=== PATIENT | female | born 1995 | race American Indian/Alaskan Native ===

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

== ENCOUNTER 2017-04-25 20:42 | Outpatient (CLI) | payer MEDICAID ==
[2017-04-25 21:12] VITALS: BP 129/69
== END 2017-04-25 21:50 | disposition home or self-care (01) ==
LOC: TRG 20:42
PROVIDERS: ATTEND Obstetrics & Gynecology
DX: O36.8130 Decreased fetal movements, third trimester, not applicable or unspecified (principal); Z3A.32 32 weeks gestation of pregnancy
CPT/HCPCS: 59025

== ENCOUNTER 2017-05-05 00:23 | Emergency (ER) | payer MEDICAID ==
[2017-05-05 00:57] VITALS: BP 113/87
[2017-05-05] MEDS ORDERED: ASPIRIN PO ONE (00:57)
[2017-05-05 01:37] LABS: Basophils % (Auto) 0.3 % (0.0-1.8); Eosinophils # (Auto) 0.1 K/mm3 (0.0-0.4); Eosinophils % (Auto) 0.8 % (0.0-4.3); Hematocrit 31.6 % (30.3-42.9); Hemoglobin 10.2 gm/dl (10.1-14.3); Lymphocytes # (Auto) 2.3 K/mm3 (1.2-5.4); Lymphocytes % (Auto) 15.1 % (13.4-35.0); Mean Corpuscular HGB Conc 32 % (30-34); Mean Corpuscular Hemoglobin 27 pg (28-32); Mean Corpuscular Volume 85 fl (79-97); Monocytes # (Auto) 0.9 K/mm3 (0.0-0.8); Monocytes % (Auto) 5.9 % (0.0-7.3); Platelet Count 111 K/mm3 (140-440); Red Blood Count 3.73 M/mm3 (3.65-5.03); Red Cell Distribution Width 13.6 % (13.2-15.2)
[2017-05-05 01:47] LABS: BUN/Creatinine Ratio 14; Blood Urea Nitrogen 7 mg/dL (7-17); Calcium 9.1 mg/dL (8.4-10.2); Hemolysis Index 9
== END 2017-05-05 12:15 | disposition left against medical advice (07) ==
LOC: ED 00:23
DX: R07.89 Other chest pain (principal); Z53.21 Procedure and treatment not carried out due to patient leaving prior to being seen by health care provider
CPT/HCPCS: 36415; 80048; 84484; 84702; 85025; 93005; 93010

== ENCOUNTER 2017-05-18 21:38 | Outpatient (CLI) | payer MEDICAID ==
[2017-05-18] MEDS ORDERED: LACTATED RINGERS 500 ML IV ONE (22:09)
[2017-05-18 22:20] LABS: Bilirubin,Urine NEG (Negative); Blood,Urine NEG (Negative); Color,Urine Yellow (Yellow); Mucus,Urine FEW /HPF; Nitrite,Urine NEG (Negative); Protein,Urine <15 mg/dL mg/dL (Negative)
== END 2017-05-18 22:54 | disposition home or self-care (01) ==
LOC: TRG 21:38
PROVIDERS: ATTEND Obstetrics & Gynecology
DX: O46.93 Antepartum hemorrhage, unspecified, third trimester (principal); Z3A.36 36 weeks gestation of pregnancy
CPT/HCPCS: 59025; 81001; J7120

== ENCOUNTER 2017-08-21 00:14 | Emergency (ER) | payer SELFPAY ==
[2017-08-21] MEDS ORDERED: TYLENOL ONE (00:18)
[2017-08-21 00:22] VITALS: BP 146/91
[2017-08-21 00:58] LABS: HCG Qualitative,Urine Negative (Negative)
== END 2017-08-21 00:35 | disposition left against medical advice (07) ==
LOC: ED 00:14
DX: R50.9 Fever, unspecified (principal); M79.1 Myalgia; Z53.21 Procedure and treatment not carried out due to patient leaving prior to being seen by health care provider
CPT/HCPCS: 81025

== ENCOUNTER 2017-08-21 14:42 | Emergency (ER) | payer SELFPAY ==
[2017-08-21] MEDS ORDERED: TORADOL IV ONE (19:27)
[2017-08-21] MEDS ORDERED: NACL 0.9% 1000 ML 1,000 ML IV ONE ×2 (19:27→21:58)
[2017-08-21] MEDS ORDERED: NORCO 5/325 PO ONE (19:27)
[2017-08-21] MEDS ORDERED: ZOFRAN IV ONE (19:27)
--- NOTE | 2017-08-21 19:31 | Emergency Department Report ---
Blank Doc - Documentation Documentation: 22-year-old female presents to the hospital planning of suprapubic abdominal pain, low back pain, nausea, vomiting, and generalized body ache. Fever 103 at home. It was elevated some liquids at this time the by mouth tolerance decreased. Denies dysuria but dark discolored urine. No vaginal discharge UA, urine , CBC, CMP Normal saline, Toradol, [place], Zofran Mid-level to further evaluate
[2017-08-21 19:51] LABS: Basophils # (Auto) 0.1 K/mm3 (0.0-0.1); Basophils % (Auto) 0.4 % (0.0-1.8); Hemoglobin 10.8 gm/dl (10.1-14.3); Lymphocytes % (Auto) 6.1 % (13.4-35.0); Mean Corpuscular HGB Conc 33 % (30-34); Mean Corpuscular Volume 77 fl (79-97); Monocytes # (Auto) 0.7 K/mm3 (0.0-0.8); Monocytes % (Auto) 4.2 % (0.0-7.3); Platelet Count 125 K/mm3 (140-440); Red Blood Count 4.31 M/mm3 (3.65-5.03)
[2017-08-21 19:52] LABS: Mean Corpuscular Hemoglobin 25 pg (28-32)
[2017-08-21 20:02] LABS: Alanine Aminotransferase 10 units/L (7-56); BUN/Creatinine Ratio 10; Blood Urea Nitrogen 6 mg/dL (7-17); Calcium 8.8 mg/dL (8.4-10.2); Hemolysis Index 39
[2017-08-21 20:03] LABS: HCG Qualitative,Urine Negative (Negative)
[2017-08-21 20:08] LABS: Amorphous Crystals,Urine Few; Bacteria,Urine 1+ /HPF (Negative); Bilirubin,Urine NEG (Negative); Blood,Urine MOD (Negative); Color,Urine Yellow (Yellow); Mucus,Urine FEW /HPF; Urobilinogen,Urine < 2.0 mg/dL (<2.0)
[2017-08-21 20:09] LABS: WBC,Urine > 182.0 /HPF (0.0-6.0)
--- NOTE | 2017-08-21 20:35 | Emergency Department Report ---
ED Female HPI - General Chief complaint: Urogenital-Female Stated complaint: FLU LIKE SYMPTOMS Time Seen by Provider: 08/21/17 19:22 Source: patient Mode of arrival: Ambulatory Limitations: No Limitations - History of Present Illness Initial comments: 22-year-old female presents to the hospital planning of suprapubic abdominal pain, low back pain, nausea, vomiting, and generalized body ache. Fever 103 at home. It was elevated some liquids at this time the by mouth tolerance decreased. Denies dysuria but dark discolored urine. No vaginal discharge. Patient report lower back pain and chills . Denies any vaginal discharge or bleeding. Pain is 4 out of 10 comes and goes. Nothing makes it better nothing makes it worse.. No medication taken MD Complaint: pelvic pain, other (lower back pain, nausea and vomiting, chills and fever) Onset/Timin -: days(s) Location: suprapubic, other (lower back pain) Radiation: non-radiating Severity: mild Severity scale (0 -10): 4 Quality: aching Consistency: intermittent Improves with: none Worsens with: none Are you Now?: No Associated Symptoms: abdominal pain, nausea/vomiting, fever/chills. denies: vaginal discharge, vaginal bleeding, headaches, loss of appetite, dysuria, hematuria, rash, seizure, shortness of breath, syncope, weakness - Related Data Sexually active: No Home Medications Medication Instructions Recorded Confirmed Last Taken Ferrous Sulfate 325 mg PO DAILY 04/25/17 05/23/17 05/23/17 08:00 Vitamin 1 tab PO DAILY 04/25/17 05/23/17 05/23/17 08:00 Previous Rx's Medication Instructions Recorded Last Taken Type Docusate Sodium [Colace] 100 mg PO BID PRN #30 capsule 05/26/17 Unknown Rx Ferrous Sulfate 325 mg PO BID 60 Days tablet. 05/26/17 Unknown Rx Ibuprofen [Motrin] 600 mg PO Q8H PRN #30 tablet 05/26/17 Unknown Rx oxyCODONE /ACETAMINOPHEN [Percocet 1 tab PO Q6HR PRN #30 tablet 05/26/17 Unknown Rx 5/325] Ibuprofen [Motrin] 600 mg PO Q8H PRN #15 tablet 08/21/17 Unknown Rx Sulfamethoxazole/Trimethoprim 1 each PO BID 10 Days #20 tablet 08/21/17 Unknown Rx [Bactrim DS TAB] Allergies Allergy/AdvReac Type Severity Reaction Status Date / Time peanut Allergy THROAT Verified 03/01/16 16:04 ITCH; DIFFICULTY SWALLOWING ED Review of Systems ROS: Stated complaint: FLU LIKE SYMPTOMS Other details as noted in HPI Comment: All other systems reviewed and negative Constitutional: chills, fever ENT: denies: ear pain, throat pain Respiratory: no symptoms reported Cardiovascular: denies: chest pain, palpitations, dyspnea on exertion, edema, syncope, paroxysmal nocturnal dyspnea Gastrointestinal: abdominal pain, nausea, vomiting. denies: diarrhea, constipation, hematemesis, melena, hematochezia Genitourinary: denies: urgency, dysuria, frequency, hematuria, discharge, abnormal menses, dyspareunia Musculoskeletal: back pain. denies: joint swelling, arthralgia, myalgia Skin: denies: rash Neurological: denies: headache, numbness, paresthesias, confusion, abnormal gait , vertigo ED Past Medical Hx - Past Medical History Previous Medical History?: No Hx Hypertension: No Hx Congestive Heart Failure: No Hx Diabetes: No Hx Deep Vein Thrombosis: No Hx Renal Disease: No Hx Sickle Cell Disease: No Hx Seizures: No Hx Asthma: No Hx COPD: No Hx HIV: No - Surgical History Past Surgical History?: Yes Additional Surgical History: - Family History Family history: hypertension - Social History Smoking Status: Never Smoker Substance Use Type: None - Medications Home Medications: Home Medications Medication Instructions Recorded Confirmed Last Taken Type Ferrous Sulfate 325 mg PO DAILY 04/25/17 05/23/17 05/23/17 08:00 History Vitamin 1 tab PO DAILY 04/25/17 05/23/17 05/23/17 08:00 History Docusate Sodium [Colace] 100 mg PO BID PRN #30 capsule 05/26/17 Unknown Rx Ferrous Sulfate 325 mg PO BID 60 Days tablet 05/26/17 Unknown Rx Ibuprofen [Motrin] 600 mg PO Q8H PRN #30 tablet 05/26/17 Unknown Rx oxyCODONE /ACETAMINOPHEN [Percocet 1 tab PO Q6HR PRN #30 tablet 05/26/17 Unknown Rx 5/325] Ibuprofen [Motrin] 600 mg PO Q8H PRN #15 tablet 08/21/17 Unknown Rx Sulfamethoxazole/Trimethoprim 1 each PO BID 10 Days #20 tablet 08/21/17 Unknown Rx [Bactrim DS TAB] ED Physical Exam - General Limitations: No Limitations General appearance: alert, in no apparent distress - Head Head exam: Present: atraumatic, normocephalic, normal inspection - Eye Eye exam: Present: normal appearance, PERRL, EOMI Pupils: Present: normal accommodation - ENT ENT exam: Present: normal exam, normal orophraynx, mucous membranes moist - Neck Neck exam: Present: normal inspection, full ROM, other (no C-spine tenderness). Absent: tenderness, lymphadenopathy - Respiratory Respiratory exam: Present: normal lung sounds bilaterally. Absent: respiratory distress, chest wall tenderness - Cardiovascular Cardiovascular Exam: Present: normal rhythm, tachycardia, normal heart sounds - GI/Abdominal GI/Abdominal exam: Present: soft, normal bowel sounds. Absent: distended, tenderness, guarding, rebound, rigid, organomegaly, mass, bruit, pulsatile mass , hernia - Extremities Exam Extremities exam: Present: normal inspection, full ROM, normal capillary refill , other (no no clubbing, cyanosis or edema. +2 pulses all extremities and no neurovascular compromise). Absent: tenderness, pedal edema, joint swelling, calf tenderness - Back Exam Back exam: Present: normal inspection, full ROM, CVA tenderness (L), other ( ambulates without any difficulties). Absent: tenderness, CVA tenderness (R), muscle spasm, paraspinal tenderness, vertebral tenderness, rash noted - Expanded Back Exam Expanded Back exam: Absent: saddle anesthesia Back exam: Negative Straight Leg Raising: Left, Right - Neurological Exam Neurological exam: Present: alert, oriented X3, normal gait, reflexes normal. Absent: motor sensory deficit - Expanded Neurological Exam Expanded Neurological exam: Absent: innattentive, memory loss-remote event, memory loss- recent event, ataxia, receptive aphasia, expressive aphasia, total aphasia, tremor, protecting the airway Patient oriented to: Present: person, place, time Speech: Present: fluid speech Cranial nerves: EOM's Intact: Normal, Gag Reflex: Normal, Tongue Deviation: Normal, Nystagmus: Normal, Facial Sensation: Normal Cerebellar function: Romberg: Normal Upper motor neuron: Pronator Drift: Normal, Sensory Extinction: Normal Sensory exam: Upper Extremity Light Touch: Normal, Upper Extremity Temperature: Normal, UE 2 Point Discrimination: Normal, Lower Extremity Light Touch: Normal, Lower Extremity Temperature: Normal, LE 2 Point Discrimination: Normal Motor strength exam: RUE: 5, LUE: 5, RLE: 5, LLE: 5 DTR: bicep (R): 2+, bicep (L): 2+, tricep (R): 2+, tricep (L): 2+, knee (R): 2+ , knee (L): 2+, ankle (R): 2+, ankle (L): 2+ Best Eye Response ([place]): (4) open spontaneously Best Motor Response ([place]): (6) obeys commands Best Verbal Response ([place]): (5) oriented Giovanna Total: 15 - Psychiatric Psychiatric exam: Present: normal affect, normal mood - Skin Skin exam: Present: warm, dry, intact, normal color. Absent: rash ED Course Vital Signs 08/21/17 08/21/17 08/21/17 14:48 20:00 21:01 Temperature 99.1 F Pulse Rate 109 H Respiratory 20 18 18 Rate Blood Pressure 122/75 Blood Pressure [Right] O2 Sat by Pulse 100 Oximetry 08/21/17 21:57 Temperature 102.1 F H Pulse Rate 117 H Respiratory 20 Rate Blood Pressure Blood Pressure 112/60 [Right] O2 Sat by Pulse 100 Oximetry Vital Signs 08/21/17 08/21/17 08/21/17 14:48 20:00 21:01 Temperature 99.1 F Pulse Rate 109 H Respiratory 20 18 18 Rate Blood Pressure 122/75 Blood Pressure [Right] O2 Sat by Pulse 100 Oximetry 08/21/17 08/21/17 21:57 23:54 Temperature 102.1 F H 99.9 F H Pulse Rate 117 H 96 H Respiratory 20 Rate Blood Pressure Blood Pressure 112/60 [Right] O2 Sat by Pulse 100 Oximetry - Reevaluation(s) Reevaluation #1: 08/21/17 21:54 Patient received 1 L of normal saline IV and tolerated by mouth challenge well without any nausea or vomiting. She received Zofran 4 mg IV which relieved her nausea. Patient also received morphine 4 mg IV which relieved her back pain. She received Toradol 30 mg IV for pain, Rocephin 1 g IV for pyelonephritis coverage, Motrin 600 mg for fever and 5/325 one tablet by mouth for pain while in the emergency room. Patient stated was that she felt better. Reevaluation #2: 08/21/17 21:57 Patient temperature is 102. She was given Motrin and we'll reevaluate. She is receiving second liter of normal saline. Reevaluation #3: 08/21/17 23:14 Patient temperature is 101.9 after her second liter of IV fluid and Motrin. She just received some Tylenol 650 mg and will reevaluate ED Medical Decision Making - Lab Data Result diagrams: 08/21/17 19:30 08/21/17 19:30 Lab Results 08/21/17 08/21/17 08/21/17 Range/Units 19:30 19:30 Unknown WBC 16.1 H (4.5-11.0) K/mm3 RBC 4.31 (3.65-5.03) M/mm3 Hgb 10.8 (10.1-14.3) gm/dl Hct 33.0 (30.3-42.9) % MCV 77 L (79-97) fl MCH 25 L (28-32) pg MCHC 33 (30-34) % RDW 14.0 (13.2-15.2) % Plt Count 125 L (140-440) K/mm3 Lymph % (Auto) 6.1 L (13.4-35.0) % Forrest % (Auto) 4.2 (0.0-7.3) % Eos % (Auto) 0.0 (0.0-4.3) % Baso % (Auto) 0.4 (0.0-1.8) % Lymph # 1.0 L (1.2-5.4) K/mm3 Forrest # 0.7 (0.0-0.8) K/mm3 Eos # 0.0 (0.0-0.4) K/mm3 Baso # 0.1 (0.0-0.1) K/mm3 Seg Neutrophils % 89.3 H (40.0-70.0) % Seg Neutrophils # 14.3 H (1.8-7.7) K/mm3 Sodium 135 L (137-145) mmol/L Potassium 4.3 (3.6-5.0) mmol/L Chloride 98.4 (98-107) mmol/L Carbon Dioxide 22 (22-30) mmol/L Anion Gap 19 mmol/L BUN 6 L (7-17) mg/dL Creatinine 0.6 L (0.7-1.2) mg/dL Estimated GFR > 60 ml/min BUN/Creatinine Ratio 10 % Glucose 103 H (65-100) mg/dL Calcium 8.8 (8.4-10.2) mg/dL Total Bilirubin 0.90 (0.1-1.2) mg/dL AST 19 (5-40) units/L ALT 10 (7-56) units/L Alkaline Phosphatase 45 (35-129) units/L Total Protein 7.2 (6.3-8.2) g/dL Albumin 4.0 (3.9-5) g/dL Albumin/Globulin Ratio 1.3 % Urine Color Yellow (Yellow) Urine Turbidity Hazy (Clear) Urine pH 5.0 (5.0-7.0) Ur Specific [place] 1.012 (1.003-1.030) Urine Protein 30 mg/dl (Negative) mg/dL Urine Glucose (UA) Neg (Negative) mg/dL Urine Ketones Neg (Negative) mg/dL Urine Blood Mod (Negative) Urine Nitrite Neg (Negative) Ur Reducing Substances Not Reportable Urine Bilirubin Neg (Negative) Urine Ictotest Not Reportable Urine Urobilinogen < 2.0 (<2.0) mg/dL Ur Leukocyte Esterase Lg (Negative) Urine WBC (Auto) > 182.0 H (0.0-6.0) /HPF Urine RBC (Auto) 13.0 (0.0-6.0) /HPF U Epithel Cells (Auto) 5.0 (0-13.0) /HPF Urine Bacteria (Auto) 1+ (Negative) /HPF Ur Transition Epith Cell 4 /HPF Amorphous Crystals Few Urine Mucus Few /HPF Urine HCG, Qual Negative (Negative) Urine culture pending - Medical Decision Making ED course: Patient here complaining of back pain and pelvic pain and was found to have pyelonephritis. She has fever, positive CVA tenderness, nausea and vomiting.Tolerated by mouth challenge well without any nausea or vomiting. She received Zofran 4 mg IV which relieved her nausea. Patient also received morphine 4 mg IV which relieved her back pain. She received Toradol 30 mg IV for pain, Rocephin 1 g IV for pyelonephritis coverage, Motrin 600 mg for fever and 5/325 one tablet by mouth for pain while in the emergency room. Patient stated was that she felt better. Patient tolerating oral liquids and her temp was 102 and 109.1 and she was given Tylenol 650 mg along with another liter of normal saline. To include 2 L total. Her temperature is now below 100 and heart rate is stable. Patient is feeling better and discharged home with prescription for Bactrim DS and Zofran. I discussed with her that she needs to follow up with her primary care physician in 4 days and if her condition worsens to return to the hospital. Critical care attestation.: If time is entered above; I have spent that time in minutes in the direct care of this critically ill patient, excluding procedure time. ED Disposition Clinical Impression: Pyelonephritis, Fever in adult, Acute flank pain Nausea & vomiting Qualifiers: Vomiting type: unspecified Vomiting Intractability: non-intractable Qualified Code(s): R11.2 - Nausea with vomiting, unspecified Leukocytosis Qualifiers: Leukocytosis type: unspecified Qualified Code(s): D72.829 - Elevated white blood cell count, unspecified Disposition: DC-01 TO HOME OR SELFCARE Is pt being admited?: No Does the pt Need Aspirin: No Condition: Stable Instructions: Fever in Adults (ED), Acute Pyelonephritis (ED), Acute Nausea and Vomiting (ED), Leukocytosis (ED), Flank Pain (ED) Additional Instructions: You have an infection in her kidney and he needs to increase her fluid intake to 2-3 L of water daily. Please take Motrin every 6 hours for fever and pain 48 hours and then as needed Take Bactrim DS antibiotic for kidney infection If you symptoms worsen and she did not get any better, please return to the emergency room Follow-up via primary care physician in 4 days and if you do not have a primary care physician follow-up at [facility] Take Zofran for nausea Prescriptions: Ibuprofen [Motrin] 600 mg PO Q8H PRN #15 tablet PRN Reason: fever and/or pain Sulfamethoxazole/Trimethoprim [Bactrim DS TAB] 1 each PO BID 10 Days #20 tablet Referrals: PRIMARY CARE, [Primary Care Provider] - 08/25/17 [facility] [Outside] - 08/25/17 Forms: Accompanied Note, Work/School Release Form(ED)
[2017-08-21] MEDS ORDERED: ROCEPHIN/NS 1 GM/50 ML 1 GM/50 ML BAG IV ONE (20:53)
[2017-08-21] MEDS ORDERED: MOTRIN PO ONE (20:53)
[2017-08-21] MEDS ORDERED: ZOFRAN ORAL LIQ PO ONE (20:53)
[2017-08-21] MEDS ORDERED: ROCEPHIN IM ONE (21:12)
[2017-08-21] MEDS ORDERED: NACL 0.9% 100 ML ONE (21:15)
[2017-08-21] MEDS ORDERED: cefTRIAXone 1 GM in NACL 0.9% 20 ML IV ONE (21:15)
[2017-08-21 21:58] VITALS: BP 112/60
[2017-08-21] MEDS ORDERED: TYLENOL PO ONE (23:13)
== END 2017-08-22 00:24 | disposition home or self-care (01) ==
LOC: ED 14:42
DX: D72.829 Elevated white blood cell count, unspecified (principal); N12 Tubulo-interstitial nephritis, not specified as acute or chronic; I10 Essential (primary) hypertension; R11.2 Nausea with vomiting, unspecified; Z91.010 Allergy to peanuts
CPT/HCPCS: 36415; 80053; 81001; 81025; 85025; 87076; 87086; 87186; 96361; 96365; 96375; 99283; J0696; J1885; J2405; J7030; Q0162

== ENCOUNTER 2018-05-31 10:53 | Emergency (ER) | payer MEDICAID ==
--- NOTE | 2018-05-31 11:31 | Emergency Department Report ---
ED Chest Pain HPI - General Chief Complaint: Dyspnea/Respdistress Stated Complaint: (L) SIDE CHEST/BACK PAIN Time Seen by Provider: 05/31/18 11:18 Source: patient Mode of arrival: Ambulatory Limitations: No Limitations - History of Present Illness Initial Comments: Ms Green is a very pleasant 23-year-old female was admitted to our hospital in March for community-acquired pneumonia, sepsis, pleurisy, left-sided parapneumonic effusion. She informed me that shehad low oxygen saturation during the first 4 days of her hospitalization. She feels that the pneumonia has come back. Over the last several days she's had cough with shortness of breath and pain with inspiration and cough at the left lower rib cage. Denies fever. Denies malaise. She did have preceding cold URI symptoms. Her young 1-year-old son also has upper respiratory infection. Mild pleuritic sharp chest pain. No radiation. She does use hormone contraception in patch form. Denies leg pain. After hospitalization, she finished course of 2 antibiotics including levofloxacin and cefdinir. On May 14, she had outpatient follow-up with regional service manager Dr. Ordoñez. Dr. Ordoñez informed her that she does have scar tissue on her lung. Consequently her subsequent chest x-ray radiographs would have an abnormal appearance. - Related Data Previous Rx's Medication Instructions Recorded Last Taken Type Cefdinir 300 mg PO BID 7 Days #14 capsule 05/31/18 Unknown Rx Allergies Allergy/AdvReac Type Severity Reaction Status Date / Time peanut Allergy THROAT Verified 03/01/16 16:04 ITCH; DIFFICULTY SWALLOWING Heart Score - HEART Score History: Slightly suspicious EKG: Normal Age: < 45 Risk factors: No known risk factors Troponin: < normal limit HEART Score: 0 ED Review of Systems ROS: Stated complaint: (L) SIDE CHEST/BACK PAIN Other details as noted in HPI Comment: All other systems reviewed and negative Constitutional: denies: fever, malaise Respiratory: cough, shortness of breath Cardiovascular: chest pain ED Past Medical Hx - Past Medical History Previous Medical History?: No Hx Hypertension: No Hx Congestive Heart Failure: No Hx Diabetes: No Hx Deep Vein Thrombosis: No Hx Renal Disease: No Hx Sickle Cell Disease: No Hx Seizures: No Hx Asthma: No Hx COPD: No Hx HIV: No - Surgical History Past Surgical History?: Yes Additional Surgical History: x 1 - Social History Smoking Status: Never Smoker Substance Use Type: None - Medications Home Medications: Home Medications Medication Instructions Recorded Confirmed Last Taken Type Cefdinir 300 mg PO BID 7 Days #14 capsule 05/31/18 Unknown Rx ED Physical Exam - General Limitations: No Limitations General appearance: alert, in no apparent distress - Head Head exam: Present: atraumatic, normocephalic - Eye Eye exam: Present: normal appearance - ENT ENT exam: Present: mucous membranes moist - Neck Neck exam: Present: normal inspection - Respiratory Respiratory exam: Present: normal lung sounds bilaterally, decreased breath sounds (left side). Absent: respiratory distress, wheezes, rales, rhonchi - Cardiovascular Cardiovascular Exam: Present: normal rhythm, tachycardia, normal heart sounds. Absent: systolic murmur, diastolic murmur, rubs, gallop - GI/Abdominal GI/Abdominal exam: Present: soft, normal bowel sounds. Absent: distended, tenderness, guarding, rebound - Extremities Exam Extremities exam: Present: normal inspection - Back Exam Back exam: Present: normal inspection - Neurological Exam Neurological exam: Present: alert, oriented X3 - Psychiatric Psychiatric exam: Present: normal affect, normal mood - Skin Skin exam: Present: warm, dry, intact, normal color. Absent: rash ED Course Vital Signs 05/31/18 11:18 Respiratory 16 Rate DODIE score - Dodie Score Age > 65: (0) No Aspirin use within the Past 7 Days: (0) No 3 or more CAD Risk Factors: (0) No 2 or more Angina events in past 24 hrs: (0) No Known CAD with more than 50% Stenosis: (0) No Elevated Cardiac Markers: (0) No ST Deviation Greater than 0.5mm: (0) No DODIE Score: 0 ED Medical Decision Making - Lab Data Result diagrams: 05/31/18 11:26 05/31/18 11:26 - Radiology Data Radiology results: report reviewed Acute left lower lobe pneumonia, scarring in the right lung on CT chest - Medical Decision Making Ms. Green presents with recurrent pneumonia. CT scan revealed acute pneumonia in the left lower lobe and scarring lung scarring in the right lung. Differential diagnosis includes pulmonary vasculitic process, Goodpasture's syndrome, neoplasm, connective tissue disease, bronchiectasis. With lung findings to explain patient's presentation, I do not suspect pulmonary embolism. Blood cultures were obtained. Patient received first dose of Cefdinir here in the ED. Prescribed cefdinir and Diflucan. She understands to follow up with Dr. Ordoñez this week. Ms. Green appears well. She is appropriate for discharge. She had low-grade temperature fever 99.8 with heart rate 101 beats a minute. Oxygen saturation 99% on room air. Critical care attestation.: If time is entered above; I have spent that time in minutes in the direct care of this critically ill patient, excluding procedure time. ED Disposition Clinical Impression: Recurrent pneumonia Disposition: DC-01 TO HOME OR SELFCARE Is pt being admited?: No Does the pt Need Aspirin: No Condition: Stable Instructions: Bacterial Pneumonia (ED) Additional Instructions: Please follow up with regional service manager Dr. Ordoñez this week. Prescriptions: Cefdinir 300 mg PO BID 7 Days #14 capsule Referrals: KEN ORDOÑEZ MD [Staff Physician] - [facility]
[2018-05-31 11:42] LABS: Basophils # (Auto) 0.1 K/mm3 (0.0-0.1); Basophils % (Auto) 0.5 % (0.0-1.8); Eosinophils % (Auto) 0.4 % (0.0-4.3); Hematocrit 32.3 % (30.3-42.9); Hemoglobin 10.5 gm/dl (10.1-14.3); Lymphocytes # (Auto) 1.5 K/mm3 (1.2-5.4); Lymphocytes % (Auto) 12.6 % (13.4-35.0); Mean Corpuscular HGB Conc 32 % (30-34); Mean Corpuscular Volume 77 fl (79-97); Monocytes # (Auto) 0.6 K/mm3 (0.0-0.8); Monocytes % (Auto) 5.4 % (0.0-7.3); Platelet Count 173 K/mm3 (140-440); Red Blood Count 4.17 M/mm3 (3.65-5.03); Red Cell Distribution Width 14.8 % (13.2-15.2)
[2018-05-31 11:57] LABS: BUN/Creatinine Ratio 8; Blood Urea Nitrogen 4 mg/dL (7-17); Calcium 9.1 mg/dL (8.4-10.2); Hemolysis Index 2
--- NOTE | 2018-05-31 13:09 | Cat Scan Report ---
FINAL REPORT EXAM: CT CHEST WO CON HISTORY: recurrent pneumonia. LT SIDED CP/BACK PAIN, SOB TECHNIQUE: CT of the chest was performed without intravenous contrast. Reconstructions were included in the coronal and sagittal planes. PRIORS: CTA of the chest from 04/02/2018. FINDINGS: Great vessels: The thoracic aorta is normal in caliber. Lungs and airways: There is a small left pleural effusion. No pulmonary nodules or masses. Mild groun d-glass and linear opacities are seen in the right middle lobe. Mild residual linear and ground-glass opacities are seen in the posterior aspect of the right lower lobe. Linear and patchy opacities are seen in the inferior aspect of the lingula. Patchy consolidative and ground-glass opacities are seen in the left lower lobe. The airways are patent. No bronchiectasis. Mediastinum, heart, pericardium: No mediastinal lymphadenopathy. No cardiac chamber enlargement. No p ericardial effusion. Thoracic inlet, chest wall, axilla: No chest wall masses. The visualized portions of the thyroid glan d demonstrate no focal lesion. No axillary lymphadenopathy. Upper abdomen: The visualized structures demonstrate no specific abnormality. Bones: No acute or chronic osseous finding. IMPRESSION: 1. Left lower lobe findings concerning for acute pneumonia. Small left pleural effusion. 2. Findings in the right middle lobe, right lower lobe and lingula may be related to scarring from pr ior pneumonia.
[2018-05-31] MEDS ORDERED: LEVAQUIN PO ONE (13:38)
[2018-05-31] MEDS ORDERED: CEFTIN PO ONE (14:00)
[2018-05-31 14:16] VITALS: BP 128/74
== END 2018-05-31 14:16 | disposition home or self-care (01) ==
LOC: ED 10:53
DX: J18.8 Other pneumonia, unspecified organism (principal); Z91.010 Allergy to peanuts
CPT/HCPCS: 36415; 71250; 80048; 84702; 85025; 87040

== ENCOUNTER 2018-10-26 10:13 | Emergency (ER) | payer MEDICAID ==
[2018-10-26 10:21] VITALS: BP 121/77
[2018-10-26] MEDS ORDERED: NACL 0.9% 1000 ML 1,000 ML IV ONE (10:50)
[2018-10-26] MEDS ORDERED: TYLENOL PO ONE (10:50)
--- NOTE | 2018-10-26 10:50 | Emergency Department Report ---
ED Headache HPI - General Chief Complaint: Headache Stated Complaint: HEADACHE Time Seen by Provider: 10/26/18 10:47 - History of Present Illness Initial Comments: Miss Coulter is a 23-year-old female who comes to the ER complaining of a headache. She is 21 weeks . 2 para 1. Her last menstrual cycle was May 28 of this year. Patient sees Dr. Cosme. She last saw him on Friday morning. At that time everything was progressing well with the . After leaving his office patient states she developed a headache in her head is been hurting since that time. She has taken Tylenol with no relief. Patient denies any trauma to her head. Patient's blood pressure is been normal through the and was done and normal in triage. Patient is ambulatory and nontoxic. She has no fever. She denies nausea vomiting diarrhea or abdominal pain. She has no vaginal discharge. She has no dysuria or CVA tenderness. Patient is taking by mouth without difficulty. She just states that her head hurts. She does have some photophobia. She has no history of migraine headaches. She does not have headaches with her last . She does not smoke drink or do any drugs. Her mom and dad are both alive and well. Allergies/Adverse Reactions: Allergies peanut Allergy (Verified 10/26/18 10:19) THROAT ITCH; DIFFICULTY SWALLOWING Home Medications: Ambulatory Orders Acetaminophen/Codeine [Tylenol /Codeine # 3 tab] 1 tab PO Q6H PRN #10 tab 10/26/18 ED Review of Systems ROS: Stated complaint: HEADACHE Other details as noted in HPI Comment: All other systems reviewed and negative Constitutional: denies: fever Eyes: denies: eye pain ENT: denies: ear pain Respiratory: denies: see HPI Cardiovascular: denies: orthopnea Endocrine: denies: see HPI Gastrointestinal: denies: nausea Genitourinary: denies: urgency Musculoskeletal: denies: as per HPI Skin: denies: lesions Neurological: as per HPI, headache. denies: weakness, numbness, paresthesias, confusion, abnormal gait, vertigo Psychiatric: denies: depression Hematological/Lymphatic: denies: easy bleeding ED Past Medical Hx - Past Medical History Previous Medical History?: No Hx Hypertension: No Hx Congestive Heart Failure: No Hx Diabetes: No Hx Deep Vein Thrombosis: No Hx Renal Disease: No Hx Sickle Cell Disease: No Hx Seizures: No Hx Asthma: No Hx COPD: No Hx HIV: No - Surgical History Past Surgical History?: Yes Additional Surgical History: x 1 - Family History Family history: no significant, other (MOM AND DAD ALIVE AND WELL) - Social History Smoking Status: Never Smoker Substance Use Type: None - Medications Home Medications: Home Medications Medication Instructions Recorded Confirmed Last Taken Type Acetaminophen/Codeine [Tylenol 1 tab PO Q6H PRN #10 tab 10/26/18 Unknown Rx /Codeine # 3 tab] ED Physical Exam - General Limitations: No Limitations - Eye Eye exam: Present: normal appearance, PERRL, EOMI. Absent: scleral icterus, conjunctival injection, nystagmus, periorbital swelling, periorbital tenderness - ENT ENT exam: Present: normal exam, mucous membranes moist, TM's normal bilaterally, normal external ear exam. Absent: normal orophraynx, mucous membranes dry - Neck Neck exam: Present: normal inspection - Respiratory Respiratory exam: Present: normal lung sounds bilaterally - Cardiovascular Cardiovascular Exam: Present: regular rate - Neurological Exam Neurological exam: Present: alert, oriented X3, CN II-XII intact, normal gait, reflexes normal. Absent: altered, abnormal gait, motor sensory deficit - Psychiatric Psychiatric exam: Present: normal affect, normal mood - Skin Skin exam: Present: warm, dry, intact - Other Other exam information: WDWN patient in NAD VS per RN flow sheet Alert and oriented to person, place and time. S1-S2. No S3 or S4. No systolic or diastolic murmur. No JVD. No pitting edema. Lungs clear to auscultation bilaterally anteriorly and posteriorly. Abdomen soft nontender bowel sounds X4 Moves all extremities well. Mood and affect appropriate. ED Course Vital Signs 10/26/18 10/26/18 10:19 12:04 Temperature 98.3 F Pulse Rate 105 H Respiratory 18 18 Rate Blood Pressure 121/77 O2 Sat by Pulse 100 Oximetry ED Medical Decision Making - Medical Decision Making 1L NS TYLENOL BP REPEATED 1300 115/58, hr [address] MICHAEL PECK NO 3 X 1 NO FOCAL DEF ON REPEAT EXAM AMBULATORY TAKING PO Patient is 21 weeks . She has gotten adequate care. She is taking her vitamin. She has no focal neuro deficit. Her vital signs are normal. She has no head trauma. She has no family history of strokes. She denies any other pain or symptoms. Vital Signs 10/26/18 10/26/18 10:19 12:04 Temperature 98.3 F Pulse Rate 105 H Respiratory 18 18 Rate Blood Pressure 121/77 O2 Sat by Pulse 100 Oximetry Lab Results 10/26/18 Range/Units 12:24 Urine Color Yellow (Yellow) Urine Turbidity Slightly-cloudy (Clear) Urine pH 7.0 (5.0-7.0) Ur Specific [place] 1.009 (1.003-1.030) Urine Protein <15 mg/dl (Negative) mg/dL Urine Glucose (UA) Neg (Negative) mg/dL Urine Ketones Neg (Negative) mg/dL Urine Blood Neg (Negative) Urine Nitrite Neg (Negative) Urine Bilirubin Neg (Negative) Urine Urobilinogen 2.0 (<2.0) mg/dL Ur Leukocyte Esterase Tr (Negative) Urine WBC (Auto) 1.0 (0.0-6.0) /HPF Urine RBC (Auto) 1.0 (0.0-6.0) /HPF U Epithel Cells (Auto) 9.0 (0-13.0) /HPF Urine Mucus Few /HPF UA has been noted. Discussed with patient the risk of narcotics and non-Tylenol medications during . She verbalizes understanding. Pt being dc home with follow up with her obgyn. ambulatory and nontoxic on dc from ER - Differential Diagnosis trauma/sinus headache/pre-eclampsia/tension headache Critical care attestation.: If time is entered above; I have spent that time in minutes in the direct care of this critically ill patient, excluding procedure time. ED Disposition Clinical Impression: , Headache Disposition: DC-01 TO HOME OR SELFCARE Is pt being admited?: No Does the pt Need Aspirin: No Condition: Stable Instructions: Acute Headache (ED) Additional Instructions: DIET TOLERATED MEDS ORDERED TODAY IN ER FOLLOW INSTRUCTIONS ON THE BOTTLE FOLLOW UP PCP WITHIN 48 HOURS TO ENSURE YOU ARE GETTING BETTER ACTIVITY TOLERATED MOTRIN OR TYLENOL FOR PAIN OR FEVER RETURN TO THE ER FOR WORSENING SYMPTOMS NOT RELIEVED BY YOUR MEDICATIONS. Prescriptions: Acetaminophen/Codeine [Tylenol /Codeine # 3 tab] 1 tab PO Q6H PRN #10 tab PRN Reason: Pain , Severe (7-10) Referrals: KIMBERLEY BROWN MD [Primary Care Provider] - 3-5 Days Time of Disposition: 13:03
[2018-10-26 12:56] LABS: Bilirubin,Urine NEG (Negative); Blood,Urine NEG (Negative); Color,Urine Yellow (Yellow); Mucus,Urine FEW /HPF; Protein,Urine <15 mg/dL mg/dL (Negative)
[2018-10-26] MEDS ORDERED: TYLENOL #3 PO ONE (13:00)
== END 2018-10-26 14:08 | disposition home or self-care (01) ==
LOC: ED 10:13
DX: O26.892 Other specified pregnancy related conditions, second trimester (principal); R51 Headache; Z3A.21 21 weeks gestation of pregnancy; Z91.010 Allergy to peanuts; Z79.899 Other long term (current) drug therapy
CPT/HCPCS: 81001; 99283; J7030; 96360

== ENCOUNTER 2018-11-15 19:44 | Emergency (ER) | payer MEDICAID ==
[2018-11-15 19:50] VITALS: BP 120/67
--- NOTE | 2018-11-15 20:49 | XRay Report ---
CHEST 1 VIEW 2022 INDICATION / CLINICAL INFORMATION: chest pain with recent h/o pneumonia. COMPARISON: 04/05/2018 FINDINGS: SUPPORT DEVICES: None HEART / MEDIASTINUM: No significant abnormality. LUNGS / PLEURA: Previous infiltrate in the left base has resolved. No areas of consolidation are seen . No pneumothorax. ADDITIONAL FINDINGS: No significant additional findings. IMPRESSION: No significant acute abnormality Signer Name: Johnny Darden MD Signed: 11/15/2018 8:45 PM Workstation Name: [email or web address]
--- NOTE | 2018-11-15 21:59 | Emergency Department Report ---
ED Chest Pain HPI - General Chief Complaint: Chest Pain Stated Complaint: 24WKS PREG, PAIN WHEN BREATHING FROM PNEUMONIA Time Seen by Provider: 11/15/18 20:27 Source: patient Mode of arrival: Ambulatory Limitations: No Limitations - History of Present Illness Initial Comments: Patient is a 23-year-old female who is approximately 24 weeks who is complaining of some chest discomfort. Patient states that 7 months ago she was diagnosed with bilateral pneumonia that was severe. Patient states she was admitted for approximately a week. Patient was told she may end up having scar tissue along secondary to the severity of the pneumonia. Patient has followed up with Dr. Ordoñez in the past. Patient states that occasionally o ff-and-on she'll have chest pains which she believes is secondary to having the pneumonia. She states these are pleuritic in nature. She states they come and go last several days and then resolve but will return. Patient states that she was previously getting pain medications from Dr. Ordoñez however because she is advanced in her she was not given these medications and came to the emergency department. The patient denies any nausea vomiting fevers chills or cough at this time. - Related Data Previous Rx's Medication Instructions Recorded Last Taken Type Acetaminophen/Codeine [Tylenol 1 tab PO Q6H PRN #10 tab 10/26/18 Unknown Rx /Codeine # 3 tab] ALBUTEROL Inhaler (OR & NICU) 2 puff IH QID PRN #1 inhalation 11/15/18 Unknown Rx [ProAir HFA Inhaler] Allergies Allergy/AdvReac Type Severity Reaction Status Date / Time peanut Allergy THROAT Verified 10/26/18 10:19 ITCH; DIFFICULTY SWALLOWING Heart Score - HEART Score History: Slightly suspicious EKG: Normal Age: < 45 Risk factors: No known risk factors Troponin: < normal limit HEART Score: 0 ED Review of Systems ROS: Stated complaint: 24WKS PREG, PAIN WHEN BREATHING FROM PNEUMONIA Other details as noted in HPI Comment: All other systems reviewed and negative ED Past Medical Hx - Past Medical History Previous Medical History?: No Hx Hypertension: No Hx Congestive Heart Failure: No Hx Diabetes: No Hx Deep Vein Thrombosis: No Hx Renal Disease: No Hx Sickle Cell Disease: No Hx Seizures: No Hx Asthma: No Hx COPD: No Hx HIV: No - Surgical History Additional Surgical History: x 1 - Social History Smoking Status: Never Smoker Substance Use Type: None - Medications Home Medications: Home Medications Medication Instructions Recorded Confirmed Last Taken Type Acetaminophen/Codeine [Tylenol 1 tab PO Q6H PRN #10 tab 10/26/18 Unknown Rx /Codeine # 3 tab] ALBUTEROL Inhaler (OR & NICU) 2 puff IH QID PRN #1 inhalation 11/15/18 Unknown Rx [ProAir HFA Inhaler] ED Physical Exam - General Limitations: No Limitations General appearance: alert, in no apparent distress - Head Head exam: Present: atraumatic, normocephalic - Eye Eye exam: Present: normal appearance - ENT ENT exam: Present: mucous membranes moist - Neck Neck exam: Present: normal inspection - Respiratory Respiratory exam: Present: normal lung sounds bilaterally. Absent: respiratory distress, wheezes, rales, rhonchi - Cardiovascular Cardiovascular Exam: Present: regular rate, normal rhythm. Absent: systolic murmur, diastolic murmur, rubs, gallop - GI/Abdominal GI/Abdominal exam: Present: soft, normal bowel sounds. Absent: distended, tenderness, guarding, rebound - Extremities Exam Extremities exam: Present: normal inspection - Back Exam Back exam: Present: normal inspection - Neurological Exam Neurological exam: Present: alert, oriented X3 - Psychiatric Psychiatric exam: Present: normal affect, normal mood - Skin Skin exam: Present: warm, dry, intact, normal color. Absent: rash ED Course Vital Signs 11/15/18 11/15/18 19:48 19:52 Temperature 98.3 F 98.3 F Pulse Rate 100 H 100 H Respiratory 18 18 Rate Blood Pressure 120/67 120/67 O2 Sat by Pulse 100 100 Oximetry DODIE score - Dodie Score Age > 65: (0) No Aspirin use within the Past 7 Days: (0) No 3 or more CAD Risk Factors: (0) No 2 or more Angina events in past 24 hrs: (0) No Known CAD with more than 50% Stenosis: (0) No Elevated Cardiac Markers: (0) No ST Deviation Greater than 0.5mm: (0) No DODIE Score: 0 ED Medical Decision Making - Radiology Data Chest x-ray is within normal limits - Medical Decision Making Patient's likely with some pleuritic discomfort likely secondary to some minor scar tissue. Patient states this is off and on pain is not progressive when it does come back. Patient's O2 sat is 100% she is not tachycardic. He has no leg swelling. Low suspicion that the patient have a pulmonary embolus at this time. Patient be discharged home with albuterol inhaler and follow-up with her primary care physician. Critical care attestation.: If time is entered above; I have spent that time in minutes in the direct care of this critically ill patient, excluding procedure time. ED Disposition Clinical Impression: Atypical chest pain, Pleurisy Disposition: DC-01 TO HOME OR SELFCARE Is pt being admited?: No Does the pt Need Aspirin: No Condition: Stable Instructions: Chest Pain (ED) Time of Disposition: 21:58
== END 2018-11-15 23:15 | disposition home or self-care (01) ==
LOC: ED 19:44
DX: O99.512 Diseases of the respiratory system complicating pregnancy, second trimester (principal); J18.9 Pneumonia, unspecified organism; R09.1 Pleurisy; R07.89 Other chest pain; Z91.010 Allergy to peanuts; Z3A.24 24 weeks gestation of pregnancy
CPT/HCPCS: 71045; 99283

== ENCOUNTER 2019-01-18 10:04 | Outpatient (CLI) | payer MEDICAID ==
--- NOTE | 2019-01-18 12:59 | Vascular Lab Report ---
DUPLEX DOPPLER LOWER EXTREMITY VEINS, BILATERAL INDICATION / CLINICAL INFORMATION: sob, eval. for dvt. TECHNIQUE: Duplex doppler imaging was performed through the veins of both lower extremities using venous deng cherri and other maneuvers. COMPARISON: None available. FINDINGS: Right Common Femoral vein: Negative. Right Femoral vein: Negative. Right Popliteal vein: Negative. Right Calf veins: Negative. Left Common Femoral vein: Negative. Left Femoral vein: Negative. Left Popliteal vein: Negative. Left Calf veins: Negative. Additional findings: None. IMPRESSION: 1. No sonographic evidence for DVT in either lower extremity. Signer Name: Mary Wheeler MD Signed: 01/18/2019 12:54 PM Workstation Name: [id number]
--- NOTE | 2019-01-19 14:40 | XRay Report ---
CHEST 1 VIEW INDICATION: Z87.01Personal history of pneumonia (recurrent). Chest pain. COMPARISON: 11/15/2018 FINDINGS: Support devices: None. Heart: Within normal limits. Lungs/Pleura: No acute air space or interstitial disease. Additional findings: None. IMPRESSION: No acute findings. Signer Name: Jose Freeman Jr, MD Signed: 01/18/2019 11:50 AM Workstation Name: [id number]
== END 2019-01-18 10:05 | disposition home or self-care (01) ==
LOC: VAS 10:04
PROVIDERS: ATTEND Obstetrics & Gynecology
DX: O26.893 Other specified pregnancy related conditions, third trimester (principal); R06.00 Dyspnea, unspecified; Z3A.32 32 weeks gestation of pregnancy; Z87.01 Personal history of pneumonia (recurrent)
CPT/HCPCS: 71045; 93970

== ENCOUNTER 2021-03-28 07:00 | Day surgery (SDC) | payer MEDICAID ==
[2021-03-26 13:30] LABS: Hematocrit 36.2 % (30.3-42.9); Hemoglobin 11.5 gm/dl (10.1-14.3); Mean Corpuscular HGB Conc 32 % (30-34); Mean Corpuscular Volume 79 fl (79-97); Platelet Count 153 K/mm3 (140-440); Red Blood Count 4.59 M/mm3 (3.65-5.03)
--- NOTE | 2021-03-27 08:01 | History and Physical Report ---
History of Present Illness Date of examination: 03/26/21 Chief complaint: Pelvic Pain History of present illness: Pt is a 26 year old -[place] female who presents for surgical management of pelvic pain. Her pain has persisted despite medical management. Past History Past Medical History: hematologic disorders (Anemia ), other (h/o pneumonia, bilateral years ago ) Past Surgical History: section [employer] History: fibroids (posterior 2.3 cm fibroid ), trichomonas (remote history ) Social history: no significant social history - Obstetrical History : 3 Para: 2 Hx # Term Pregnancies: 1 Number of Pregnancies: 1 Spontaneous Abortions: 0 Induced : 1 Number of Living Children: 2 Medications and Allergies Allergies Allergy/AdvReac Type Severity Reaction Status Date / Time peanut Allergy Severe THROAT Verified 03/21/21 12:38 ITCH; DIFFICULTY SWALLOWING ibuprofen AdvReac Severe CHEST Verified 03/21/21 12:38 TIGHTENS Home Medications Medication Instructions Recorded Confirmed Last Taken Type Albuterol Mdi (or & Nicu Only) 2 puff IH QID PRN #1 inhalation 11/15/18 02/25/19 Unknown Rx [ProAir HFA Inhaler] Ascorbic Acid [Vitamin C] 500 mg PO DAILY 03/21/21 03/21/21 Unknown History Fluticasone Propion/Salmeterol 1 each IH DAILY 03/21/21 03/21/21 Unknown History [Wixela 100-50 Inhub] medroxyPROGESTERone ACETATE 1 dose IM [id number] 03/21/21 03/21/21 Unknown History [Depo-Provera (Contraception)] Review of Systems All systems: negative - Vital Signs Vital signs: Vital Signs Temp Pulse Resp BP Pulse Ox 98.7 F 91 H 20 130/96 99 03/26/21 13:05 03/26/21 13:05 03/26/21 13:05 03/26/21 13:05 03/26/21 13:05 Temp Pulse Resp BP Pulse Ox 98.7 F 91 H 20 130/96 99 03/26/21 13:05 03/26/21 13:05 03/26/21 13:05 03/26/21 13:05 03/26/21 13:05 - Physical Exam Breasts: Positive: deferred Cardiovascular: Regular rate Lungs: Positive: Clear to auscultation Abdomen: Positive: soft, tenderness (lower quadrants ) Extremities: Positive: normal Results Result Diagrams: 03/26/21 13:10 Abnormal lab results 03/26/21 Range/Units 13:10 MCH 25 L (28-32) pg All other labs normal. Ultrasound: report reviewed (: uterus 7.4 x 4.1 x 3.3 cm, EMS 2.1 mm, posterior fibroid 2.3 cm ) Assessment and Plan A: Pelvic Pain Fibroid Uterus H/o bilateral pneumonia P: Proceed with laparoscopy, possible lysis of adhesions, possible ovarian cystectomy and other indicated procedures
[~2021-03-28 07:00] MED LIST: ACETAMINOPHEN 500 MG TAB PO SCH; BACTERIOSTATIC SODIUM CHLORIDE 0.9% 30 ML VIAL INFILTRATI ONE; GABAPENTIN 300 MG CAP PO NR; LACTATED RINGERS 1,000 ML IV SCH; MIDAZOLAM 2 MG/2 ML INJ IV NR; SCOPOLAMINE TRANSDERMAL PATCH 72 HR TD NR; ceFAZolin/Water 2 GM/20 ML 2 GM/20 ML SYRINGE IV NR
--- NOTE | 2021-03-28 07:21 | Anesthesia Consultation ---
Anesthesia Consult and Med Hx Date of service: 03/28/21 - Airway Anesthetic Teeth Evaluation: Good ROM Head & Neck: Adequate Mental/Hyoid Distance: Adequate Mallampati Class: Class II Intubation Access Assessment: Probably Good - Pulmonary Exam CTA: Yes - Cardiac Exam Cardiac Exam: RRR - Pre-Operative Health Status ASA Pre-Surgery Classification: ASA2 Proposed Anesthetic Plan: General - Pulmonary Hx Smoking: No Hx Asthma: Yes Hx Respiratory Symptoms: No SOB: Yes (cannot climb a flight of stairs comfortably) COPD: No Hx Pneumonia: Yes (X2 SCARRED LUNGS-STILL HAS TO USE INHALERS) Hx Sleep Apnea: No (SNORES) - Cardiovascular System Hx Hypertension: No Hx Coronary Artery Disease: No Hx Heart Attack/AMI: No Hx Angina: No Hx Percutaneous Transluminal Coronary Angioplasty (PTCA): No Hx Cardia Arrhythmia: No Hx Pacemaker: No Hx Internal Defibrillator: No Hx Valvular Heart Disease: No Hx Heart Murmur: No Hx Peripheral Vascular Disease: No - Central Nervous System Hx Neuromuscular Disorder: No Hx Seizures: No CVA: No Hx Back Pain: Yes (OCC.) Hx Psychiatric Problems: Yes - Gastrointestinal Hx Ulcer: No Hx Gastroesophageal Reflux Disease: No - Endocrine Hx Renal Disease: No Hx End Stage Renal Disease: No Hx Cirrhosis: No Hx Liver Disease: No Hx Insulin Dependent Diabetes: No Hx Non-Insulin Dependent Diabetes: No Hx Thyroid Disease: No Hx Hypothyroidism: No Hx Hyperthyroidism: No - Hematic Hx Anemia: Yes Hx Sickle Cell Disease: Yes (TRAIT) - Other Systems Hx Alcohol Use: No Hx Substance Use: Yes (SMOKES MARIJUANA QD) Hx Cancer: No Hx Obesity: No - Additional Comments Anesthesia Medical History Comments: no gac, no fhac. Patient reports pneumonia x2. Uses inhaled steroid and rescue (albuterol) MDIs everyday. Still has difficulty climbing stairs due to SOB.
--- NOTE | 2021-03-28 07:21 | Anesthesia Day of Surgery ---
Anesthesia Day of Surgery - Day of Surgery Patient Examined: Yes Patient H&P Reviewed: Yes Patient is NPO: Yes Beta Blockers: No
[2021-03-28] MEDS ORDERED: BUPIVACAINE/PF (0.5%) 5 MG/1 ML 10 ML VIAL INFILTRATI ONE ×2 (07:23→09:10)
[2021-03-28] MEDS ORDERED: propofoL 200 MG/20 ML VIAL IV ONE (07:38)
[2021-03-28] MEDS ORDERED: ONDANSETRON 4 MG/2 ML INJ ONE (07:38)
[2021-03-28] MEDS ORDERED: ROCURONIUM 50 MG/5 ML INJ IV ONE (07:38)
[2021-03-28] MEDS ORDERED: LIDOCAINE MPF (2%) 20 MG/1 ML VIAL 5 ML ONE (07:38)
[2021-03-28] MEDS ORDERED: HYDROmorphone 1 MG/1 ML INJ ONE (07:38)
[2021-03-28] MEDS ORDERED: ONDANSETRON 4 MG/2 ML INJ IV PRN (08:00)
[2021-03-28] MEDS ORDERED: HYDROmorphone 1 MG/1 ML INJ IV PRN (08:00)
[2021-03-28] MEDS ORDERED: oxyCODONE /ACETAMINOPHEN 5-325MG TAB PO PRN (08:30)
[2021-03-28] MEDS ORDERED: KETAMINE/STERILE WATER 50 MG/ML SYRINGE ONE (08:50)
[2021-03-28] MEDS ORDERED: SODIUM CHLORIDE 0.9% IRR 1,500 ML BOTTLE IR ONE (09:10)
[2021-03-28] MEDS ORDERED: GLYCOPYRROLATE 0.4 MG/2 ML INJ ONE (09:11)
[2021-03-28] MEDS ORDERED: NEOSTIGMINE 10MG/10 ML INJ MDV ONE (09:11)
[2021-03-28] MEDS ORDERED: SILVER NITRATE APPLICATOR 1 EA TP ONE ×2 (09:16→09:17)
--- NOTE | 2021-03-28 09:27 | Operative Report ---
Operative Report Operative Report: Date of Surgery: March 28, 2021 Preoperative Diagnosis: Pelvic Pain Postoperative Diagnosis: Same 2) Omental Adhesion Procedure: Laparoscopic Lysis of Adhesions Surgeon: Yvette Cosme MD Short Order Cook: Suzette Sanchez MD Anesthesia: GETA Findings: 1) Small retroverted uterus that sounded to 7 cm 2) Normal appearing uterus, ovaries and tubes 3) 4-5 cm omental adhesion to the anterior abdominal wall 4) Increased vascularity of the pelvis suggestive of pelvic congestion syndrome EBL: 10 mL Urine output: 275 mL, prior to start of procedure Specimen: None Complications: None. Counts correct x 2 Disposition: Stable to PACU Indication for Procedure: This pt is a 26 year old who presents for surgical management of pelvic pain after failure of medical management. Operation In Detail: After the risks, benefits, complications and alternatives were explained to the patient, she gave informed consent for the procedure. She was then taken to the operating room and placed in the dorsal supine position with her IV noted to be running well and SCDs in place and functioning. General endotracheal anesthesia was induced without difficulty. The patient was then placed in the dorsal lithotomy position and prepped and draped in a normal sterile fashion. A time out was then performed. An exam under anesthesia revealed a small mobile retroverted uterus. The bladder was then drained of 275 mL of clear urine. A bi-valve speculum was placed in the vagina to visualize the cervix. A single tooth tenaculum was placed on the anterior lip of the cervix for traction. The uterus was then gently sounded to 7 cm. A uterine manipulator was then placed. The speculum was removed atraumatically. The surgeon's gloves were then changed. Attention was then turned to entry into the abdominal cavity. A 5 mm supraumbilical incision was made with an 11 blade. The skin was grasped on either side of the umbilicus with towel clamps and tented up. The Veres needle was placed into the peritoneal cavity, confirmed with a saline drop test. The abdomen was then insufflated with CO2 gas to a pressure of 15 mmHg. A 5 mm Visiport trocar was then placed. An anatomic survey was then performed with findings as indicated above. A second 5mm trocar site was created in the left lower quadrant. An 5 mm trocar was then placed under direct visualization. The patient was placed in the Trendelenburg position. A 4-5 cm omental adhesions was noted. The adhesions was lysed using the Ligasure device. At this time, all instruments and trocars were removed from the abdominal cavity. The pneumoperitoneum was released. The incisions were then infiltrated with half percent Marcaine. The incisions were reapproximated with 4-0 Vicryl in a subcuticular fashion. They were then covered with skin glue. The uterine manipulator and tenaculum were removed atraumatically. Silver nitrate was placed on the tenaculum puncture sites on the cervix, and hemostasis was noted. All instruments were then removed from the vagina atraumatically. At this time the procedure was ended. The patient was placed into the dorsal supine position and extubated without difficulty. She was subsequently taken to the PACU in stable condition. All instrument, needle and lap counts were correct 2.
--- NOTE | 2021-03-28 09:39 | Short Stay Summary ---
Short Stay Documentation Date of service: 03/28/21 - History H&P: dictated Social history: no significant social history - Allergies and Medications Current Medications: Allergies peanut Allergy (Severe, Verified 03/21/21 12:38) THROAT ITCH; DIFFICULTY SWALLOWING ibuprofen Adverse Reaction (Severe, Verified 03/21/21 12:38) CHEST TIGHTENS Home Medications Medication Instructions Recorded Confirmed Last Taken Type Albuterol Mdi (or & Nicu Only) 2 puff IH QID PRN #1 inhalation 11/15/18 02/25/19 03/26/21 Rx [ProAir HFA Inhaler] Ascorbic Acid [Vitamin C] 500 mg PO DAILY 03/21/21 03/28/21 03/27/21 History Fluticasone Propion/Salmeterol 1 each IH DAILY 03/21/21 03/28/21 03/28/21 06:25 History [Wixela 100-50 Inhub] medroxyPROGESTERone ACETATE 1 dose IM [id number] 03/21/21 03/21/21 Unknown History [Depo-Provera (Contraception)] Active Medications Acetaminophen (Acetaminophen 500 Mg Tab) 1,000 mg PO PREOP LENNIE Stop: 03/28/21 20:00 Last Admin: 03/28/21 06:59 Dose: 1,000 mg Documented by: Albuterol (Albuterol 2.5 Mg/3 Ml Nebu) 2.5 mg IH PRN PRN PRN Reason: Wheezing Gabapentin (Gabapentin 300 Mg Cap) 300 mg PO PREOP NR Stop: 03/28/21 20:00 Last Admin: 03/28/21 06:59 Dose: 300 mg Documented by: Hydromorphone HCl (Hydromorphone 1 Mg/1 Ml Inj) 0.5 mg IV Q10MIN PRN PRN Reason: Pain , Severe (7-10) Stop: 03/28/21 23:00 Lactated Ringer's (Lactated Ringers) 1,000 mls @ 75 mls/hr IV DIRECT LENNIE Last Admin: 03/28/21 07:07 Dose: 75 mls/hr Documented by: Cefazolin Sodium (Ancef/Sterile Water 2 Gm/20 Ml) 2 gm in 20 mls @ 80 mls/hr IV PREOP NR; Protocol Stop: 03/28/21 21:00 Midazolam HCl (Midazolam 2 Mg/2 Ml Inj) 2 mg IV PREOP NR Stop: 03/28/21 20:00 Last Admin: 03/28/21 07:26 Dose: 2 mg Documented by: Ondansetron HCl (Ondansetron 4 Mg/2 Ml Inj) 4 mg IV ONCE PRN PRN Reason: Nausea And Vomiting Stop: 03/28/21 13:00 Oxycodone/Acetaminophen (Oxycodone /Acetaminophen 5-325mg Tab) 1 tab PO ONCE PRN PRN Reason: Pain, Moderate (4-6) Stop: 03/28/21 10:00 Scopolamine (Scopolamine Transdermal Patch 72 Hr) 1 each TD PREOP NR Stop: 03/28/21 23:00 Last Admin: 03/28/21 06:56 Dose: 1 each Documented by: - Physical exam Breasts: deferred - Brief post op/procedure progress note Date of procedure: 03/28/21 Pre-op diagnosis: Pelvic Pain Post-op diagnosis: same Procedure: Laparoscopic Lysis of Adhesions Anesthesia: GETA Findings: 1) Small retroverted uterus that sounded to 7 cm 2) Normal appearing uterus, ovaries and tubes 3) 4-5 cm omental adhesion to the anterior abdominal wall 4) Increased vascularity of the pelvis suggestive of pelvic congestion syndrome Surgeon: JANE COSME Estimated blood loss: minimal (10 mL) Pathology: none Condition: stable - Hospital course Hospital course: Patient underwent laparoscopic lysis of adhesions which she tolerated well. She was observed in the PACU until she met discharge criteria. She will follow-up in the office in [address] Cosme. - Disposition Condition at discharge: Stable Disposition: 01 HOME / SELF CARE / HOMELESS - Discharge Diagnoses (1) Pelvic pain Status: Acute (2) Adhesion of omentum Status: Acute Short Stay Discharge Plan Activity: other (Nothin in vagina, no tub baths, no intercourse x 4 wks ) Weight Bearing Status: Full Weight Bearing Diet: regular Wound: keep clean and dry Follow up with: PRIMARY CAREMD [Primary Care Provider] - 7 Days JANE COSME MD [Staff Physician] - 7 Days Prescriptions: oxyCODONE /ACETAMINOPHEN [Percocet 5/325] 1 tab PO Q6HR PRN #30 tablet PRN Reason: Pain
--- NOTE | 2021-03-28 12:47 | Post Anesthesia Evaluation ---
- Post Anesthesia Evaluation Patient Participated: Yes Airway Patent: Yes Stable Respiratory Function: Yes Nausea/Vomiting: No Temp > 96.8F: Yes Pain Manageable: Yes Adequeate Hydration: Yes Anesthesia Complications: No
[2021-03-28 12:57] VITALS: BP 108/54
[2021-03-28] MEDS ORDERED: oxyCODONE /ACETAMINOPHEN 5-325MG TAB PO ONE (13:10)
[2021-03-29] MEDS ORDERED: ALBUTEROL 2.5 MG/3 ML NEBU IH PRN (08:00)
== END 2021-03-28 12:35 | disposition home or self-care (01) ==
LOC: OR 07:00
PROVIDERS: ATTEND Obstetrics & Gynecology
DX: R10.2 Pelvic and perineal pain (principal); D50.9 Iron deficiency anemia, unspecified; F41.9 Anxiety disorder, unspecified; F32.9 Major depressive disorder, single episode, unspecified; J45.909 Unspecified asthma, uncomplicated; Z79.899 Other long term (current) drug therapy; Z98.890 Other specified postprocedural states; Z88.8 Allergy status to other drugs, medicaments and biological substances; Z20.822 Contact with and (suspected) exposure to COVID-19
CPT/HCPCS: 36415; 58660; 84703; 85027; J0690; J1170; J1815; J2250; J2405; J2704; J2710; J3490; J7120; U0003